=== PATIENT | male | born 1940 | race Caucasian/White ===

== ENCOUNTER 2017-07-18 16:17 | Emergency (ER) | payer MEDICARE, OTHER ==
[2017-07-18] VITALS (10 sets, daily range): BP systolic 76–120; BP diastolic 54–66; PULSE 72–96; RESP 16–40; TEMP 97.5–97.6; O2SAT 94–98
[2017-07-18] MEDS ORDERED: SODIUM CHLORIDE 0.9% FLUSH 10 ML FLUSH IVF PRN (17:30)
[2017-07-18] MEDS ORDERED: SODIUM CHLORID 0.9% 500 ML INJ 500 ML IV ONE (17:30)
[2017-07-18] MEDS ORDERED: BUDE0.5S NEB (17:32)
[2017-07-18] MEDS ORDERED: DIGO0.12 PO (17:32)
[2017-07-18] MEDS ORDERED: SENN1TAB PO (17:32)
[2017-07-18] MEDS ORDERED: LACT1CAP20 PO (17:32)
[2017-07-18] MEDS ORDERED: GABA300C5 PO (17:32)
[2017-07-18] MEDS ORDERED: SPIR25 PO (17:32)
[2017-07-18] MEDS ORDERED: FURO40TA PO (17:32)
[2017-07-18] MEDS ORDERED: METO5TAB3 PO (17:32)
[2017-07-18] MEDS ORDERED: DIFL100T PO (17:32)
[2017-07-18] MEDS ORDERED: INDA1.25 PO (17:32)
[2017-07-18] MEDS ORDERED: CARV3.12 PO (17:32)
[2017-07-18] MEDS ORDERED: ROFL1TAB2 PO (17:32)
[2017-07-18] MEDS ORDERED: TAMS0.4C4 PO (17:32)
[2017-07-18] MEDS ORDERED: ASPI81CH CHEW (17:32)
[2017-07-18] MEDS ORDERED: WARF4TAB51 PO (17:32)
[2017-07-18] MEDS ORDERED: FAMO20TA2 PO (17:32)
[2017-07-18] MEDS ORDERED: IPRASOL INH (17:32)
[2017-07-18] MEDS ORDERED: CHOL5000 PO (17:32)
[2017-07-18] MEDS ORDERED: PRED10 PO (17:32)
[2017-07-18] MEDS ORDERED: MELA5TAB15 PO (17:32)
[2017-07-18] MEDS ORDERED: K-TA10TA PO (17:32)
[2017-07-18] MEDS ORDERED: MIDO10TA PO (17:32)
[2017-07-18] MEDS ORDERED: ALPR.25 PO (17:32)
[2017-07-18] MEDS ORDERED: ATOR20TA15 PO (17:32)
[2017-07-18 17:52] LABS: BLOOD GAS VENOUS HCO3 41 mmol/L (22-26); BLOOD GAS VENOUS O2 CONTENT 11.3 Vol % (9.0-17.0); BLOOD GAS VENOUS O2 HGB SAT 72 % (70-76); BLOOD GAS VENOUS PCO2 60 mmHg (44-48); BLOOD GAS VENOUS PO2 42 mmHg (35-40); BLOOD GAS VENOUS pH 7.45 (7.360-7.400); TEMP CORR TO 98.6
[2017-07-18 17:53] LABS: CRITICAL VALUE YES; DRAW SITE IV; LITER FLOW 2 L/M; OXYGEN DEVICE NASAL CANNULA; STAT YES
[2017-07-18 17:56] LABS: AUTOMATED NEUTROPHIL # 12.1 TH/MM3 (1.8-7.7); BASOPHIL # 0.2 TH/MM3 (0-0.2); BASOPHIL % 1.3 % (0.0-2.0); EOSINOPHIL % 0.2 % (0.0-4.0); HEMATOCRIT 34.2 % (39.0-51.0); HEMO FLAGS DIFF FINAL; LYMPH % 6.1 % (9.0-44.0); LYMPHOCYTE # 0.8 TH/MM3 (1.0-4.8); MEAN CORPUSCULAR HEMOGLOBIN 25.1 PG (27.0-34.0); MEAN CORPUSCULAR HGB CONC 32.6 % (32.0-36.0); MONO % 4.3 % (0.0-8.0); NEUT % 88.1 % (16.0-70.0); PLATELET COUNT 143 TH/MM3 (150-450); RED BLOOD COUNT 4.45 MIL/MM3 (4.50-5.90); RED CELL DISTRIBUTION WIDTH 22.9 % (11.6-17.2); WHITE BLOOD COUNT 13.7 TH/MM3 (4.0-11.0)
[2017-07-18 18:11] LABS: POTASSIUM 3.9 MEQ/L (3.5-5.1)
[2017-07-18 18:14] LABS: BICARBONATE 40.1 MEQ/L (21.0-32.0); MAGNESIUM 1.8 MG/DL (1.5-2.5)
[2017-07-18 18:17] LABS: APTT (PATIENT) 35.1 SEC (24.3-30.1); INTERNATIONAL NORMALIZED RATIO 3.8 RATIO; PROTHROMBIN TIME - PATIENT 44.2 SEC (9.8-11.6)
--- NOTE | 2017-07-18 18:32 | RADRPT ---
EXAM DATE/TIME: 07/18/2017 17:55 [facility] COMPARISON: No previous studies available for comparison. INDICATIONS : Generalized weakness. RADIATION DOSE: 61.98 CTDIvol (mGy) MEDICAL HISTORY : Chronic obstructive pulmonary disease. SURGICAL HISTORY : None. ENCOUNTER: Initial ACUITY: 1 day PAIN SCALE: 0/10 LOCATION: cranial TECHNIQUE: Multiple contiguous axial images were obtained of the head. Using automated exposure control and adj ustment of the mA and/or kV according to patient size, radiation dose was kept as low as reasonably a chievable to obtain optimal diagnostic quality images. DICOM format image data is available electro nically for review and comparison. FINDINGS: CEREBRUM: The ventricles and cortical sulci are widened. No evidence of midline shift, mass lesion, hemorrhage or acute infarction. No extra-axial fluid collections are seen. POSTERIOR FOSSA: The cerebellum and brainstem are intact. The 4th ventricle is midline. The cerebellopontine angle i s unremarkable. EXTRACRANIAL: The visualized portion of the orbits is intact. There is fluid in the mastoid air cells bilaterally a nd in the right middle ear. The nasopharynx appears grossly normal. SKULL: The calvaria is intact. No evidence of skull fracture. CONCLUSION: 1. No acute intracranial abnormality. 2. Age-related atrophy. 3. Fluid in the mastoid sinuses and in the right middle ear. Kevan Rawls MD on July 18, 2017 at 18:29 Board Certified Radiologist. This report was verified electronically.
--- NOTE | 2017-07-18 18:58 | RADRPT ---
EXAM DATE/TIME: 07/18/2017 18:22 [facility] COMPARISON: No previous studies available for comparison. INDICATIONS : Chest pain. MEDICAL HISTORY : Hypercholesterolemia. Chronic obstructive pulmonary disease. Atrial fibrillation. SURGICAL HISTORY : Pacemaker. Colostomy. ENCOUNTER: Initial ACUITY: 1 day PAIN SCORE: Non-responsive. LOCATION: Bilateral chest FINDINGS: Pacemaker device is noted with control pack over the left chest. There is pronounced volume loss on t he right with rightward cardiomediastinal shift. Correlation with possible previous surgery to accoun t for this is recommended. There does appear to be some mild bibasilar parenchymal opacity. Innumerab le granulomatous calcifications are present overlying the lung heart and cardiomediastinal structure s. CONCLUSION: Right lung volume loss. Mild bibasilar parenchymal opacities. 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 Kevan Albright MD on July 18, 2017 at 18:55 Board Certified Radiologist. This report was verified electronically.
--- NOTE | 2017-07-18 21:20 | PD ---
HPI Chief Complaint: General Weakness Time Seen by Provider: 16:48 Travel History International Travel<30 days: No Contact w/Intl Traveler<30days: No Traveled to known affect area: No History of Present Illness HPI Patient is a 77-year-old male arrives by [facility] for evaluation in the emergency department. Unfortunately [facility] is unable to explain to me why the patient was brought here. After discussing with Dr. Vanessa is determined that the patient was going to his office today for a checkup from the [facility] where he is a resident at which time Dr. Vanessa was concerned about the patient's mental status and sent him to the emergency department to be seen. Apparently during his last visit at that office the patient had a been alert and conversant and was able to participate in some of his decision- making process. After discussing with the nurse Imelda the patient has recently been diagnosed with colon cancer which was obstructing in nature and had to have a diverting colostomy done earlier this summer. After which she had to be readmitted to the hospital for what sounds like a pneumonia. The nurse states that the patient has had a gradual decline ever since the second admission to the hospital both which were done at [facility]. The patient was made a DNR based on his wishes and his last hospitalization and didn't name his son is his healthcare surrogate. Currently the patient is unable to speak, he has a transient a fascia according to Dr. José Mcqueen his primary care physician whom I also spoke to. He is unable to provide any of his history currently. History is extremely limited therefore. PFSH Past Medical History Atrial Fibrillation: Yes Heart Rhythm Problems: Yes High Cholesterol: Yes COPD: Yes Gastrointestinal Disorders: Yes (COLOSTOMY) GERD: Yes Respiratory: Yes (COPD) Integumentary: Yes (NUMEROUS DECUBITUS AND SKIN TEARS. ) Past Surgical History Surgical History: Unable to Obtain Pacemaker: Yes Social History Tobacco Use: No Substance Use: No Allergies-Medications (Allergen,Severity, Reaction): Coded Allergies: Penicillins (Verified Allergy, Unknown, 07/18/17) Reported Meds & Prescriptions Reported Meds & Active Scripts Active Levaquin (Levofloxacin) 750 Mg Tablet 750 Mg PO DAILY 7 Days Reported Xanax (Alprazolam) 0.25 Mg Tab 0.25 Mg PO HS Vitamin D3 (Cholecalciferol) 5,000 Unit Cap 5,000 Units PO DAILY Tamsulosin (Tamsulosin HCl) 0.4 Mg Cap 0.4 Mg PO HS Aldactone (Spironolactone) 25 Mg Tab 25 Mg PO DAILY Senna-Plus (Sennosides-Docusate Sodium) 8.6-50 Mg Tab 1 Tab PO DAILY Prednisone 10 Mg Tab 10 Mg PO DAILY K-Tab (Potassium Chloride) 10 Meq Tab 10 Meq PO DAILY Midodrine 10 Mg Tab 10 Mg PO BID Metolazone 5 Mg Tab 5 Mg PO DAILY Melatonin 5 Mg Tab 6 Mg PO HS Duoneb (Ipratropium-Albuterol Neb) 0.5-2.5 Mg/3 Ml Neb 1 Nebule INH Q6HR NEB Indapamide 1.25 Mg Tab 1 Tab PO DAILY Gabapentin 300 Mg Cap 300 Mg PO BID Furosemide 40 Mg Tab 40 Mg PO BID Famotidine 20 Mg Tab 20 Mg PO BID Digoxin 0.125 Mg Tab 0.125 Mg PO DAILY Diflucan (Fluconazole) 100 Mg Tab 100 Mg PO DAILY Daliresp (Roflumilast) 500 Mcg Tab 500 Mcg PO DAILY Warfarin 2 Mg Tab 2 Mg PO DAILY Carvedilol 3.125 Mg Tab 3.125 Mg PO BID Budesonide Neb 0.5 Mg/2 Ml Neb 0.5 Mg NEB Q12HR NEB Atorvastatin (Atorvastatin Calcium) 20 Mg Tab 20 Mg PO HS Aspirin 81 Mg Chew 81 Mg CHEW DAILY Acidophilus Lactobacillus (Lactobacillus Acidophilus) 1 Each Capsule 1 Cap PO BID Review of Systems Except as stated in HPI: all other systems reviewed are Neg Physical Exam Narrative GENERAL: Well-developed, temporal wasting, cachectic, SKIN: multiple skin breakdown sites observed on his upper extremities as well as a large sacral ulcer probably dinner plate size. There is a small area that appears to be grade 2 otherwise is unstageable. There are also contusions over bilateral shoulders with some small abrasions. There is also a midline incision which majority appears to be healing well however there is a dehiscent portion in the inferior most part which is packed with gauze. No surrounding cellulitis no discharge from this wound. HEAD: Atraumatic. Normocephalic. No blackmon signs no raccoons eyes, temporal wasting. EYES: Pupils equal and round. No scleral icterus. No injection or drainage. Eyes are sunken. ENT: No nasal bleeding or discharge. Mucous membranes pink and moist. NECK: Trachea midline. No JVD. CARDIOVASCULAR: Regular rate and rhythm. No murmur appreciated. RESPIRATORY: No accessory muscle use. Clear to auscultation. Breath sounds equal bilaterally. GASTROINTESTINAL: Abdomen soft, non-tender, nondistended. Hepatic and splenic margins not palpable. MUSCULOSKELETAL: No obvious deformities. No clubbing. No cyanosis. No edema. NEUROLOGICAL: Awake and alert. A phasic, intermittently follows commands. Eyes open. Later in the counter he is more conversant, GCS improves to 13. Data Data Last Documented VS Vital Signs Date Time Temp Pulse Resp B/P (MAP) Pulse Ox O2 Delivery O2 Flow Rate FiO2 07/18/17 22:22 76 24 112/60 (77) 95 Nasal Cannula 2.00 07/18/17 17:14 97.5 Orders Orders Electrocardiogram (07/18/17 17:17) Basic Metabolic Panel (Bmp) (07/18/17 17:17) Ckmb (Isoenzyme) Profile (07/18/17 17:17) Complete Blood Count With Diff (07/18/17 17:17) Magnesium (Mg) (07/18/17 17:17) Prothrombin Time / Inr (Pt) (07/18/17 17:17) Act Partial Throm Time (Ptt) (07/18/17 17:17) Troponin I (07/18/17 17:17) Chest, Single Ap (07/18/17 17:17) Ecg Monitoring (07/18/17 17:17) Iv Access Insert/Monitor (07/18/17 17:17) Oximetry (07/18/17 17:17) Oxygen Administration (07/18/17 17:17) Sodium Chloride 0.9% Flush (Ns Flush) (07/18/17 17:30) Sodium Chlorid 0.9% 500 Ml Inj (Ns 500 M (07/18/17 17:30) Ct Brain W/O Iv Contrast(Rout) (07/18/17 ) Blood Gas Venous (Vbg) (07/18/17 17:31) Urinalysis - C+S If Indicated (07/18/17 17:33) Hospice Consult (07/18/17 18:02) Levofloxacin (Levaquin) (07/19/17 00:15) Levofloxacin Liq (Levaquin Liq) (07/19/17 00:30) Labs Laboratory Tests Test 07/18/17 17:45 07/18/17 17:48 White Blood Count 13.7 TH/MM3 Red Blood Count 4.45 MIL/MM3 Hemoglobin 11.1 GM/DL Hematocrit 34.2 % Mean Corpuscular Volume 77.0 FL Mean Corpuscular Hemoglobin 25.1 PG Mean Corpuscular Hemoglobin Concent 32.6 % Red Cell Distribution Width 22.9 % Platelet Count 143 TH/MM3 Mean Platelet Volume 7.3 FL Neutrophils (%) (Auto) 88.1 % Lymphocytes (%) (Auto) 6.1 % Monocytes (%) (Auto) 4.3 % Eosinophils (%) (Auto) 0.2 % Basophils (%) (Auto) 1.3 % Neutrophils # (Auto) 12.1 TH/MM3 Lymphocytes # (Auto) 0.8 TH/MM3 Monocytes # (Auto) 0.6 TH/MM3 Eosinophils # (Auto) 0.0 TH/MM3 Basophils # (Auto) 0.2 TH/MM3 CBC Comment DIFF FINAL Differential Comment Prothrombin Time 44.2 SEC Prothromb Time International Ratio 3.8 RATIO Activated Partial Thromboplast Time 35.1 SEC Blood Urea Nitrogen 65 MG/DL Creatinine 1.40 MG/DL Random Glucose 146 MG/DL Calcium Level 9.0 MG/DL Magnesium Level 1.8 MG/DL Sodium Level 138 MEQ/L Potassium Level 3.9 MEQ/L Chloride Level 96 MEQ/L Carbon Dioxide Level 40.1 MEQ/L Anion Gap 2 MEQ/L Estimat Glomerular Filtration Rate 49 ML/MIN Total Creatine Kinase 20 U/L Troponin I 0.05 NG/ML Blood Gas Puncture Site IV Blood Gas Patient Temperature 98.6 Venous Blood pH 7.45 Venous Blood Partial Pressure CO2 60 mmHg Venous Blood Partial Pressure O2 42 mmHg Venous Blood HCO3 41 mmol/L Venous Blood Oxygen Saturation 72 % Venous Blood Oxygen Content 11.3 Vol % Venous Blood Base Excess 16.0 mmol/L Oxygen Delivery Device NASAL CANNULA Blood Gas Liter Flow 2 L/M MDM Medical Decision Making Medical Screen Exam Complete: Yes Emergency Medical Condition: Yes Differential Diagnosis Hypercapnia, pneumonia, sepsis, UTI, abdominal cancer, diverting colostomy, failure to thrive. Narrative Course Patient roomed in the emergency department, it took me a fair amount of phone calls to ascertain this patient's baseline mental status as well as determine exactly how he ended up in the emergency department. Dr. Vanessa has expressed his concern that the patient may be retaining CO2. My initial workup does reveal an apparent pulmonary infiltrate on the right however his chest x- ray is severely limited by rotation. CAT scan of the head is negative, blood work shows an increase in white blood cell count with a left shift. VBG shows a metabolic alkalosis with concomitant respiratory acidosis which appears chronic with a PCO2 of 60. Creatinine 1.4 without previous for comparison. The patient does appear dehydrated was given normal saline, is also been tolerating some by mouth later in his encounter. Had extensive conversation with his son Mr. Barcenas who is also the patient's healthcare surrogate named on his living will which we have obtained as well as a DNR order. The patient has been offered hospice in the past and declined for more aggressive therapy. I discussed my opinion of them that he is temporal wasting and has very little metabolic reserve. He is wheelchair-bound according to the group home and is a poor candidate for any further aggressive intervention. I discussed with him that a hospice consult is appropriate at this time but I am happy to pursue what ever course of treatment they would like to do. His son would like to speak with hospice and have a consultation at this time. Hospice has calm to perform a consultation agrees the patient is appropriate. Ultimately we will enroll him in hospice and discharged him to the [facility]. However at this time the offices are closed and the patient's son lives in [place] and therefore we need to wait until we can have the documents fulfilled for enrollment. For the time being we'll keep the patient in the emergency department until the morning when these documents can be satisfied. The patient will be started on Levaquin for his small infiltrate and elevated white blood cell count. This is indicated as may add some quality of life. He was given a first dose in the emergency department. Urine specimen was ordered however the patient was able to provide and I think that starting him on Levaquin will partially cover urinary tract infection and continuing to perform invasive procedures such as a urinary catheterization will only provide the patient with undue pain and not alter his management at this time. Diagnosis Primary Impression: Pneumonia Qualified Codes: J18.9 - Pneumonia, unspecified organism Additional Impression: Failure to thrive in adult Med/Other Pt SpecificInfo: Prescription(s) given Scripts Levofloxacin (Levaquin) 750 Mg Tablet 750 MG PO DAILY for Infection for 7 Days, #7 TAB 0 Refills Prov: Andrez Griffin MD 07/19/17 Disposition: 51 HOSPICE/MED FACILITY Condition: Stable Andrez Griffin MD Jul 18, 2017 21:19
[2017-07-19] MEDS ORDERED: LEVA750T9 PO (00:15)
[2017-07-19] MEDS ORDERED: LEVOFLOXACIN 750 MG TAB PO ONE (00:15)
[2017-07-19 00:30] VITALS: BP 118/64; PULSE 82; RESP 22; O2SAT 90
[2017-07-19] MEDS ORDERED: LEVOFLOXACIN ORAL SOLN 2500 MG/100 ML BOTTLE PO ONE (00:30)
[2017-07-19 01:30] VITALS: BP 113/62; PULSE 92; RESP 24; O2SAT 92
[2017-07-19 03:45] VITALS: BP 109/64; PULSE 91; RESP 30; O2SAT 93
[2017-07-19 06:30] VITALS: BP 104/64; PULSE 94; RESP 28; O2SAT 91
[2017-07-19 07:55] VITALS: BP 101/61; PULSE 92; RESP 16; TEMP 97.1; O2SAT 96
--- NOTE | 2017-07-19 10:26 | EKG ---
Date Performed: 07/18/2017 Time Performed: 17:26:02 PTAGE: 77 years EKG: ATRIAL FIBRILLATION WITH ABERRANT CONDUCTION OR VENTRICULAR PREMATURE COMPLEXES POSSIBLE AN TERIOR MYOCARDIAL INFARCTION INFERIOR MYOCARDIAL INFARCTION ABNORMAL ECG NO PREVIOUS TRACING DOCTOR: Erlin Almaraz Interpretating Date/Time 07/19/2017 10:24:26
== END 2017-07-19 11:08 | disposition hospice, inpatient (51) ==
LOC: PHED 16:17
DX: J18.9 Pneumonia, unspecified organism (principal); R62.7 Adult failure to thrive; E78.00 Pure hypercholesterolemia, unspecified; I48.91 Unspecified atrial fibrillation; Z95.0 Presence of cardiac pacemaker; Z93.3 Colostomy status; J44.0 Chronic obstructive pulmonary disease with (acute) lower respiratory infection
CPT/HCPCS: 70450; 71010; 80048; 82550; 82805; 83735; 84484; 85025; 85610; 85730; 93005; 96360; 99285; J7040